=== PATIENT | female | born 1965 | race Caucasian/White ===

== ENCOUNTER 2017-03-31 20:10 | Emergency (ER) | payer SELFPAY ==
[~2017-03-31] VITALS: Ht 160 cm; Wt 72.0 kg
[2017-03-31] MEDS ORDERED: ENALAPRIL 10MG TABLET PO ONE (20:45)
[2017-03-31 21:00] LABS: CARBON DIOXIDE 28 mEq/L (21-32); CHLORIDE 106 mEq/L (98-107)
[2017-03-31 21:08] LABS: HCG SCREEN NEGATIVE
[2017-03-31 22:13] VITALS: BP 172/71
[2017-03-31] MEDS ORDERED: POTASSIUM CHLORIDE 20MEQ TABLET SR PO ONE (22:15)
== END 2017-03-31 22:42 | disposition home or self-care (01) ==
LOC: ER 20:10
DX: I16.0 Hypertensive urgency (principal); Z91.14 Patient's other noncompliance with medication regimen; E87.6 Hypokalemia
CPT/HCPCS: 36415; 80048; 84703; 99284